=== PATIENT | male | born 1990 | race Two or more races ===

== ENCOUNTER 2018-06-10 10:50 | Emergency (ER) | payer MEDICAID, OTHER ==
[~2018-06-10] VITALS: Ht 175.3 cm; Wt 65.8 kg
[2018-06-10 12:44] VITALS: BP 99/64
== END 2018-06-10 14:10 | disposition home or self-care (01) ==
LOC: ER 10:54
DX: S39.012A Strain of muscle, fascia and tendon of lower back, initial encounter (principal); X50.0XXA Overexertion from strenuous movement or load, initial encounter; X50.3XXA Overexertion from repetitive movements, initial encounter; Y93.89 Activity, other specified; Y99.0 Civilian activity done for income or pay; Y92.89 Other specified places as the place of occurrence of the external cause
CPT/HCPCS: 72100

== ENCOUNTER 2019-12-19 15:37 | Emergency (ER) | payer OTHER, MEDICAID ==
[~2019-12-19] VITALS: Ht 175.3 cm; Wt 65.8 kg
[2019-12-19 17:40] VITALS: BP 106/59
[2019-12-19] MEDS ORDERED: BACITRACIN TOP OINT 1 UD PKG TOP ONE (17:45)
[2019-12-19] MEDS ORDERED: LIDOCAINE 1% HCL (LOCAL ANESTH.) INJ 20ML MDV IJ ONE (17:45)
[2019-12-19] MEDS ORDERED: IBUPROFEN 600 MG TAB PO ONE (18:30)
== END 2019-12-19 18:47 | disposition home or self-care (01) ==
LOC: ER 15:37
DX: S62.656A Nondisplaced fracture of middle phalanx of right little finger, initial encounter for closed fracture (principal); S01.112A Laceration without foreign body of left eyelid and periocular area, initial encounter; S40.812A Abrasion of left upper arm, initial encounter; S40.811A Abrasion of right upper arm, initial encounter; S80.811A Abrasion, right lower leg, initial encounter; V86.55XA Driver of 3- or 4- wheeled all-terrain vehicle (ATV) injured in nontraffic accident, initial encounter; Y93.89 Activity, other specified; Y99.8 Other external cause status; Y92.89 Other specified places as the place of occurrence of the external cause
CPT/HCPCS: 12011; 29130; 70450; 73140; 99284; J2001